=== PATIENT | male | born 1940 | race Caucasian/White ===

== ENCOUNTER → 2018-09-13 | Outpatient (CLI) | payer MEDICARE ==
[~2018-09-13] MED LIST: AMLODIPINE BESYL5 MG PO; ASPIRIN81 M1 PO; AUGMENTIN 875875 MG PO; ESCITALOPRAM OX10 MG PO; GLUCOSAMINE CH1 EAC1 PO; LISINOPRIL-HYDR1 TA1 PO; MUCINEX ER600 MG PO; POTASSIUM CHLO10 ME5 PO; PREDNISONE10 MG PO; PROPRANOLOL ER80 MG PO
[2018-09-13 09:49] LABS: BASO # 0.1 10*3/uL (0.0-0.1); BASO % 1.9 % (0.0-1.0); EOS # 0.3 10*3/uL (0.0-0.4); EOS % 5.2 % (1.0-4.0); HEMATOCRIT 42.6 % (42.0-52.0); HEMOGLOBIN 13.4 g/dl (14.0-18.0); LYMPH # 1.1 10*3/uL (1.3-4.4); LYMPH % 19.9 % (27.0-41.0); MEAN CELL VOLUME 89.5 fl (80.0-94.0); MEAN CORPUSCULAR HGB 28.2 pg (27.0-31.0); MEAN CORPUSCULAR HGB CONC 31.5 g/dl (33.0-37.0); MEAN PLATELET VOLUME 10.3 fl (9.6-12.3); MONO # 0.5 10*3/uL (0.1-1.0); MONO % 9.4 % (3.0-9.0); NEUT # 3.6 10*3/uL (2.3-7.9); NEUT % 63.3 % (47.0-73.0); PLATELET COUNT AUTOMATED 279 10*3/uL (130-400); RED BLOOD COUNT 4.76 10*6/uL (4.50-5.90); RED CELL DISTRI WIDTH 14.5 % (0-14.5); WHITE BLOOD COUNT 5.7 10*3/uL (4.8-10.8)
[2018-09-13 10:20] LABS: ALBUMIN 3.6 gm/dl (3.1-4.5); ALKALINE PHOSPHATASE 101 U/L (45-117); BUN 18 mg/dl (7-24); CHLORIDE 102 mmol/L (98-107); CHOLESTEROL 155 mg/dL (<200); CREATININE 1.02 mg/dL (0.70-1.30); HDL CHOLESTEROL 47 mg/dl (40-60); LDL CHOLESTEROL 87 mg/dL (9-159); SGOT/AST 21 IU/L (3-35); SGPT/ALT 21 U/L (12-78); SODIUM 139 mmol/L (136-145); T3 UPTAKE 33 % (31-39); THYROXINE (T4) TOTAL 7.7 ug/dl (4.5-12.1); TRIGLYCERIDES 103 mg/dl (<150); VLDL CHOLESTEROL 21 mg/dL (6-40)
== END | disposition home or self-care (01) ==
LOC: LAB 09:21
PROVIDERS: Internal Medicine
DX: Z12.5 Encounter for screening for malignant neoplasm of prostate (principal); I10 Essential (primary) hypertension; E78.2 Mixed hyperlipidemia; E03.9 Hypothyroidism, unspecified; E55.9 Vitamin D deficiency, unspecified; R53.83 Other fatigue; D51.0 Vitamin B12 deficiency anemia due to intrinsic factor deficiency

== ENCOUNTER 2018-10-21 23:03 | Inpatient (IN) | payer MEDICARE ==
[~2018-10-21] VITALS: Ht 177.8 cm; Wt 99.8 kg
--- NOTE | ~2018-10-21 | EKG ---
[place], [place] ELECTROCARDIOGRAM REPORT NAME: ANIKET LUEVANO UNIT #: [id number] ROOM: 411 DOCTOR: TRACY DRAFT REPORT BIRTHDATE: [birth year] [facility] Test Date: 2018-10-21 Test Time: 23:08:17 Pat Name: ANIKET LUEVANO Department: Room: 411 Gender: M Process Technician: : 1940 Requested By: NATALY SANZ Order Number: [id number] Reading MD: Sonja Pierre MD Measurements Intervals [place] Rate: 102 P: 53 GA: 187 QRS: 42 QRSD: 150 T: -21 QT: 372 QTc: 485 Interpretive Statements Sinus tachycardia Right bundle branch block Inferior infarct, age indeterminate Electronically Signed On 10-22-2018 7:10:49 PDT by Sonja Pierre MD CM:EKGRPT:ELECTROCARDIOGRAM REPORT [id number] NATALY NGUYEN DRAFT REPORT NATALY SANZ DO
--- NOTE | ~2018-10-21 | EKG ---
[place], [place] ELECTROCARDIOGRAM REPORT NAME: ANIKET LUEVANO UNIT #: [id number] ROOM: 411 DOCTOR: TRACY DRAFT REPORT BIRTHDATE: [birth year] [facility] Test Date: 2018-10-22 Test Time: 01:35:05 Pat Name: ANIKET LUEVANO Department: Room: 411 Gender: M Director Of Accounting: Nikki Turcios : 1940 Requested By: NATALY SANZ Order Number: [id number] Reading MD: Sonja Pierre MD Measurements Intervals [place] Rate: 83 P: 29 [place]: 204 QRS: 38 QRSD: 152 T: -15 QT: 433 QTc: 509 Interpretive Statements Sinus rhythm Right bundle branch block Inferior infarct, age indeterminate Lateral leads are also involved Baseline wander in lead(s) V1,V2,V3,V4,V5,V6 Electronically Signed On 10-22-2018 7:12:06 PDT by Sonja Pierre MD CM:EKGRPT:ELECTROCARDIOGRAM REPORT [id number] NATALY SANZ DO EPIPHCARL DRAFT REPORT NATALY SANZ DO
--- NOTE | ~2018-10-21 | CON ---
[place], [place] REPORT OF CONSULTATION NAME[id number] UNIT #: [id number] ROOM: 411 DOCTOR: WALLACE MELTON MD BIRTHDATE: [birth year] DOS: 10/22/2018 PULMONARY CONSULTATION, EVALUATION, AND MANAGEMENT HISTORY OF PRESENT ILLNESS: The patient was noted somewhat poor historian as well, presented to the hospital and admitted to the hospital this morning under the care of hospitalist services for symptoms of shortness of breath and also thought that he has a food, which has gone to the wrong pipe during last night. The patient stated he woke up, felt like choking at night, something in the throat, thought that he may have inhaled the food in his wind pipe. He came into the Emergency Room, as the patient was complaining of symptoms of increased shortness of breath with the coughing. He denies symptoms of chest pain with that. He does not have any sputum expectoration. Denies symptoms of hemoptysis. The patient has been currently admitted to the hospital for further care. This morning, the patient appeared to be comfortable using oxygen supplementation with the nasal cannula. REVIEW OF SYSTEMS: CONSTITUTIONAL: Fatigue and tiredness reported. Denies symptoms of fever or chills. EYES: Denies any burning, redness, or tenderness. EARS, NOSE, AND THROAT: Denies sore throat, hoarseness, otalgia, postnasal drainage or epistaxis. GASTROINTESTINAL: Dysphagia, nausea, vomiting, diarrhea, abdominal pain, hematemesis, melena, or hematochezia. SKIN: Denies abnormal lesions or rashes. CENTRAL NERVOUS SYSTEM: Denies dizziness, headache, diplopia, or syncopal episodes. Remaining systems were reviewed, they were noted all negative. PAST MEDICAL HISTORY: As listed are: 1. 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 The patient has unilateral breath, using noninvasive ventilator at home as per patient p.r.n. 2. Essential hypertension. 3. Moderate obesity. 4. History of essential tremors. 5. History of depression. PAST SURGICAL HISTORY: 1. Deep brain stimulator. 2. ORIF, fracture of the arm. SOCIAL HISTORY: The patient stated that he smoked cigarettes only when he was in the college for a couple of years, but not noted with chronic tobacco dependence. He is and lives at home. The patient has 3 children. Denies any history of alcohol use. FAMILY HISTORY: Unknown. [place], [place] REPORT OF CONSULTATION NAME: ANIKET LUEVANO UNIT #: [id number] ROOM: [facility] DOCTOR: SANDY ADAN MD,WALLACE BIRTHDATE: [birth year] HOME MEDICATIONS: Listed as amlodipine, aspirin, Lexapro, lisinopril, hydrochlorothiazide, potassium, chloride, and propranolol. MEDICATIONS: Current medication which has been administered on this hospitalization were Lovenox for DVT prophylaxis, Mucinex 1200 mg b.i.d., Protonix 40 mg daily, Zithromax, IV Rocephin, metronidazole, temazepam, and some other p.r.n. meds. DRUG ALLERGIES: No known drug allergies. PHYSICAL EXAMINATION: GENERAL: A 78-year-old male who has been currently noted to be awake and alert without acute distress. Height of 5 feet 10 inches, weight of 220 pounds, BMI 31.5. VITAL SIGNS: The patient's temperature 99.9 degree Fahrenheit on admission, currently afebrile, respiratory rate of 30 and currently noted 18, heart rate 107, currently 68, blood pressure 146/75 on admission, currently 100/80. Pulse oxygen saturation on room air 91% saturation, on 4 liters nasal cannula 95% saturation, previously on admission on the BiPAP used by the patient for a few hours was 94% saturation with 40% oxygen use at that time. HEENT: Examination shows head was atraumatic. Eyes nonicterus. NECK: Supple. Decreased posterior pharyngeal space, high tongue base, crowding of soft tissue structures. LUNGS: Complete absence of breath sounds noted in the right lower lung with occasional crackles. ABDOMEN: Soft, nontender. Bowel sounds present. EXTREMITIES: The patient was noted without any acute edema. Chronic obesity findings. MUSCULOSKELETAL: Without acute deformities. CENTRAL NERVOUS SYSTEM: The patient's cranial nerves 2-12 intact. LABORATORY DATA: The arterial blood gas in the Emergency Room, pH of 7.39, pCO2 of 49, pO2 of 62, rest on room air. The PT and PTT on 10/21/2018 in the Emergency Room was normal. CBC in the emergency room, WBC count 14.5, hemoglobin 13.1, platelet count was normal. The lactic acid was 1.4 this morning. CMP that was done this morning, normal BUN and creatinine. Other LFTs and electrolytes are grossly normal. Troponin 3 sets, which were completed in the last 12 hours were normal. CBC this morning, WBC count 15.7, hemoglobin 11.9, platelet count 250,000. The chest x-ray shows elevation of the right hemidiaphragm noted, possibility of small pleural fluid cannot be excluded versus pleural thickening. The CT scan of the chest that was done and reviewed, shows elevation of the hemidiaphragm with area of atelectasis of the right lower lobe partially would be considered, possibility of small pneumonia cannot be completely excluded. The right lung appeared to be clear of any large consolidation except nodular density noted in right lower lobe and incidental finding of small cyst briefly located in the right lower lobe as well. IMPRESSION: 1. The patient who has been currently admitted to the hospital developed [place], [place] REPORT OF CONSULTATION NAME: ANIKET LUEVANO UNIT #: [id number] ROOM: 411 DOCTOR: SANDY ADAN MD,[facility] BIRTHDATE: [birth year] significant respiratory distress. The patient with possibility of aspiration pneumonia. 2. 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 3. The patient without any evidence of hypercarbia, CO2 retention noted in arterial blood gases on admission. 4. The patient with nodular density of left lower lobe, to be considered infection until resolution, which is round atelectasis to nodule or infection consideration of the differential. 5. Chronic moderate obesity as well as the possibility of obstructive sleep apnea disorder. PLAN OF MANAGEMENT: The patient has been started on the antibiotic has metronidazole, Rocephin, and Zithromax that will be continued. Monitor respiratory status, progression of the illness. Usual care, other therapy, plan of management. Continue the BiPAP as tolerated to support the respiratory distress if it occurs. Otherwise, p.r.n. use. Usual care, other supportive therapy, plan of management. Additional treatment changes will be recommended for the patient based on the progression of his illness. Thank you for allowing me to participate in the care of this patient. WALLACE DELGADO MD CM:CONSTR:REPORT OF CONSULTATION 1246 10/23/18 0551 interface
--- NOTE | ~2018-10-21 | EKG ---
[place], [place] ELECTROCARDIOGRAM REPORT NAME: ANIKET LUEVANO UNIT #: [id number] ROOM: 411 DOCTOR: TRACY DRAFT REPORT BIRTHDATE: [birth year] [facility] Test Date: 2018-10-22 Test Time: 04:50:24 Pat Name: ANIKET LUEVANO Department: Room: 411 Gender: M Supervisor Delivery Department: Stephania Guevara : 1940 Requested By: NATALY SANZ Order Number: [id number] Reading MD: Sonja Pierre MD Measurements Intervals [place] Rate: 81 P: 55 [place]: 204 QRS: 39 QRSD: 155 T: -19 QT: 440 QTc: 511 Interpretive Statements Sinus rhythm Right bundle branch block Baseline wander in lead(s) V1 Electronically Signed On 10-22-2018 7:13:09 PDT by Sonja Pierre MD CM:EKGRPT:ELECTROCARDIOGRAM REPORT 0450 0713 NATALY NGUYEN DRAFT REPORT NATALY SANZ DO
--- NOTE | ~2018-10-21 | PR ---
[place], [place] PROGRESS NOTE NAME: ANIKET LUEVANO UNIT #: [id number] ROOM: 411 DOCTOR: SANDY ADAN MD,WALLACE BIRTHDATE: [birth year] DOS: 10/24/2018 SUBJECTIVE: The patient noted comfortable at this time, resting in the bed this morning of assessment. Has not been noted any symptoms of fever or chills. He does have shortness of breath and cough, which has been improving slowly and gradually. OBJECTIVE: VITAL SIGNS: For the patient which has been recorded showed normal temperature, respiratory rate 20, heart rate 91, blood pressure 142/90. Pulse oxygen saturation on 3 liters nasal cannula 98% saturation. HEENT: Head was atraumatic. Eyes nonicterus. NECK: Supple and obese. CARDIOVASCULAR: S1, S2 audible. LUNGS: Decreased breath sounds in the right lower lung. Decreased breath sounds, otherwise without any wheezing on today's exam. ABDOMEN: Soft, nontender. Bowel sounds are present. EXTREMITIES: No acute edema. IMPRESSION: 1. Acute aspiration pneumonia. 2. Acute exacerbation of chronic obstructive pulmonary disease as well. Reduction of respiratory symptom noted in the last 24 hours with current use of corticosteroids. PLAN OF MANAGEMENT: No changes from the pulmonary standpoint. Continue current therapy, plan of management. Possible discharge in the morning may be considered. WALLACE DELGADO MD CM:PNTRANS [id number] WALLACE ADAN MD 10/24/18 1710 interface
--- NOTE | ~2018-10-21 | PR ---
[place], [place] PROGRESS NOTE NAME: ANIKET LUEVANO UNIT #: [id number] ROOM: 411 DOCTOR: WALLACE MELTON MD BIRTHDATE: [birth year] DOS: 10/23/2018 PULMONARY PROGRESS NOTE SUBJECTIVE: The patient noted comfortable at this time, resting on the bed this morning. He has been noted shortness breath with minimal exertion. The patient just went from the bed to the bathroom and noted significant short of breath and also noted with audible wheezing. He denies symptoms of hemoptysis. The patient does report symptoms of nonproductive cough this morning. Denies symptoms of headache or diplopia. Denies symptoms of nausea, vomiting, diarrhea, abdominal pain, hematemesis, melena, or hematochezia. Denies any pain of the lower extremities. Remaining systems were reviewed. They were noted all negative. PHYSICAL EXAMINATION: VITAL SIGNS: For the patient this morning, normal temperature, respiratory rate 18, heart rate 90, blood pressure 142/82. Pulse oxygen saturation on 3 liters nasal cannula 95% saturation. HEENT: Moderate obesity. Head was atraumatic. Eye nonicterus. NECK: Supple. CARDIOVASCULAR: S1, S2 is audible. LUNGS: Noted with expiratory wheezing today with decreased breath sounds in the lungs, absent breath sounds previously in his right lower lung remains unchanged. ABDOMEN: Soft, nontender. Bowel sounds present. EXTREMITIES: Noted without any significant edema. MUSCULOSKELETAL: Noted without any acute deformities. SKIN: No lesions or rashes. CENTRAL NERVOUS SYSTEM: Intact. IMPRESSION: 1. Acute exacerbation of chronic obstructive pulmonary disease, possibility of acute pneumonia. 2. Pulmonary nodule was also noted as well. 3. History of chronic right diaphragmatic paralysis as well. PLAN OF THERAPY: Starting the patient on Solu-Medrol 40 mg b.i.d. dosing. Other plan of therapy will be continued as previously. Titrate oxygen supplementation, maintain pulse oxygen saturation of 92% or greater. Usual care. [place], [place] PROGRESS NOTE NAME: ANIKET LUEVANO UNIT #: [id number] ROOM: 411 DOCTOR: WALLACE MELTON MD BIRTHDATE: [birth year] WALLACE DELGADO MD CM:PNTRANS [id number] WALLACE ADAN MD 11/08/18 1045 interface
--- NOTE | ~2018-10-21 | PR ---
[place], [place] PROGRESS NOTE NAME: ANIKET LUEVANO UNIT #: [id number] ROOM: 411 DOCTOR: WALLACE MELTON MD BIRTHDATE: [birth year] DOS: 10/25/2018 SUBJECTIVE: The patient continued to do very well at this time by the respiratory management. Denies symptoms of chest pain, fever or chills. There were no symptoms of hemoptysis. Shortness of breath is improving. Coughing has been resolving, but not completely improved. OBJECTIVE: GENERAL: This morning, the patient was sitting comfortably on the bed without any acute distress. VITAL SIGNS: Normal temperature, respiratory rate 18, heart rate 78, blood pressure 146/82. Pulse oxygen saturation recorded on 3 liters is 95% saturation at that time. HEENT: Examination shows head was atraumatic. Eyes nonicterus. NECK: Supple. CARDIOVASCULAR: S1, S2 is audible. LUNGS: Absent breath sounds in right lower lung previously noted. There were no crackles present. ABDOMEN: Soft, nontender. Bowel sounds present. EXTREMITIES: Without any acute edema. LABORATORY DATA: Elevation of the hemidiaphragm noted previously chronically. Small pleural thickening and the deformity of the chest, which is chronic as well. The stimulator for the brain remains in place with a generator in the left upper chest obscuring the part of the left upper lobe. No acute infiltration at this time were noted. IMPRESSION: 1. Resolving acute suspected pneumonia. 2. Chronic right diaphragmatic paralysis as well. PLAN OF MANAGEMENT: No changes from the pulmonary standpoint. Discharge planning per primary care attending on oral antibiotics. The patient was advised to use his noninvasive ventilator at home, which has been done previously. Usual care, other supportive therapy, plan of management and care. [place], [place] PROGRESS NOTE NAME: ANIKET LUEVANO UNIT #: [id number] ROOM: 411 DOCTOR: WALLACE MELTON MD BIRTHDATE: [birth year] WALLACE DELGADO MD CM:PNTRANS [id number] WALLACE ADAN MD 10/25/181924 interface
[~2018-10-21 23:03] MED LIST changes: -AUGMENTIN 875875 MG PO; -MUCINEX ER600 MG PO; -PREDNISONE10 MG PO
[2018-10-21 23:04] VITALS: BP 146/75
[2018-10-21 23:27] LABS: BASO # 0.1 10*3/uL (0.0-0.1); BASO % 0.6 % (0.0-1.0); EOS # 0.2 10*3/uL (0.0-0.4); EOS % 1.1 % (1.0-4.0); HEMATOCRIT 41.1 % (42.0-52.0); HEMOGLOBIN 13.1 g/dl (14.0-18.0); LYMPH # 0.8 10*3/uL (1.3-4.4); LYMPH % 5.2 % (27.0-41.0); MEAN CELL VOLUME 89.7 fl (80.0-94.0); MEAN CORPUSCULAR HGB 28.6 pg (27.0-31.0); MEAN CORPUSCULAR HGB CONC 31.9 g/dl (33.0-37.0); MONO # 0.6 10*3/uL (0.1-1.0); MONO % 4.4 % (3.0-9.0); NEUT # 12.8 10*3/uL (2.3-7.9); NEUT % 88.3 % (47.0-73.0); PLATELET COUNT AUTOMATED 372 10*3/uL (130-400); RED BLOOD COUNT 4.58 10*6/uL (4.50-5.90); RED CELL DISTRI WIDTH 15.6 % (0-14.5); WHITE BLOOD COUNT 14.5 10*3/uL (4.8-10.8)
[2018-10-21 23:38] LABS: ACT PARTIAL THROMBO TIME 21.4 SECONDS (20.8-31.5)
[2018-10-21 23:57] LABS: ABG BASE EXCESS 1.7 mmol/L (-2.0-2.0); ARTERIAL BLOOD GAS PCO2 43.4 mmHg (35-45); ARTERIAL BLOOD GAS PH 7.399 (7.35-7.45); ARTERIAL BLOOD GAS PO2 62.4 mmHg (80-90)
[2018-10-22] VITALS (7 sets, daily range): BP systolic 106–153; BP diastolic 62–89
[2018-10-22 00:42] LABS: ALBUMIN 3.6 gm/dl (3.1-4.5); ALKALINE PHOSPHATASE 88 U/L (45-117); BUN 22 mg/dl (7-24); CHLORIDE 108 mmol/L (98-107); POTASSIUM 3.6 mmol/L (3.5-5.1); SGOT/AST 22 IU/L (3-35); SGPT/ALT 22 U/L (12-78); SODIUM 141 mmol/L (136-145); TOTAL PROTEIN 7.5 gm/dL (6.4-8.2)
[2018-10-22 07:09] LABS: BASO # 0.1 10*3/uL (0.0-0.1); BASO % 0.4 % (0.0-1.0); EOS % 0.1 % (1.0-4.0); HEMATOCRIT 37.9 % (42.0-52.0); HEMOGLOBIN 11.9 g/dl (14.0-18.0); LYMPH # 1.4 10*3/uL (1.3-4.4); LYMPH % 8.7 % (27.0-41.0); MEAN CELL VOLUME 89.6 fl (80.0-94.0); MEAN CORPUSCULAR HGB 28.1 pg (27.0-31.0); MEAN CORPUSCULAR HGB CONC 31.4 g/dl (33.0-37.0); MONO # 0.8 10*3/uL (0.1-1.0); MONO % 5.3 % (3.0-9.0); NEUT # 13.4 10*3/uL (2.3-7.9); NEUT % 85.1 % (47.0-73.0); RED BLOOD COUNT 4.23 10*6/uL (4.50-5.90); RED CELL DISTRI WIDTH 15.8 % (0-14.5); WHITE BLOOD COUNT 15.7 10*3/uL (4.8-10.8)
[2018-10-22 07:10] LABS: PLATELET COUNT AUTOMATED 250 10*3/uL (130-400)
[2018-10-22 07:20] LABS: BUN 22 mg/dl (7-24); CHLORIDE 108 mmol/L (98-107); CREATININE 1.07 mg/dL (0.70-1.30); POTASSIUM 3.7 mmol/L (3.5-5.1); SODIUM 143 mmol/L (136-145)
[2018-10-22 13:35] LABS: BILIRUBIN NEGATIVE (NEGATIVE); BLOOD NEGATIVE (NEGATIVE); CLARITY SL CLOUDY (CLEAR); COLOR YELLOW (YELLOW); GLUCOSE NEGATIVE (NEGATIVE); KETONE NEGATIVE (NEGATIVE); LEUKO ESTERASE NEGATIVE (NEGATIVE); NITRITE NEGATIVE (NEGATIVE); PH 5.5 (5.0-9.0); SPECIFIC GRAVITY >= 1.030 (1.005-1.030); UROBILINOGEN 0.2 E.U./dl (0.2-1.0)
[2018-10-22 13:42] LABS: BACTERIA 2+; MUCOUS 2+
[2018-10-23] VITALS: BP 125/67
[2018-10-23 06:29] LABS: BASO # 0.1 10*3/uL (0.0-0.1); BASO % 0.7 % (0.0-1.0); EOS # 0.4 10*3/uL (0.0-0.4); EOS % 4.7 % (1.0-4.0); HEMOGLOBIN 11.6 g/dl (14.0-18.0); LYMPH # 1.3 10*3/uL (1.3-4.4); LYMPH % 14.5 % (27.0-41.0); MEAN CORPUSCULAR HGB 27.5 pg (27.0-31.0); MEAN CORPUSCULAR HGB CONC 30.5 g/dl (33.0-37.0); MEAN PLATELET VOLUME 11.1 fl (9.6-12.3); MONO # 0.8 10*3/uL (0.1-1.0); MONO % 8.8 % (3.0-9.0); NEUT # 6.6 10*3/uL (2.3-7.9); NEUT % 71.1 % (47.0-73.0); PLATELET COUNT AUTOMATED 222 10*3/uL (130-400); RED BLOOD COUNT 4.22 10*6/uL (4.50-5.90); RED CELL DISTRI WIDTH 15.7 % (0-14.5); WHITE BLOOD COUNT 9.2 10*3/uL (4.8-10.8)
[2018-10-23 07:00] LABS: BUN 20 mg/dl (7-24); CHLORIDE 104 mmol/L (98-107); CREATININE 0.91 mg/dL (0.70-1.30); POTASSIUM 3.7 mmol/L (3.5-5.1); SODIUM 139 mmol/L (136-145)
[2018-10-23 08:00] VITALS: BP 130/80; BP 142/82
[2018-10-23 12:00] VITALS: BP 150/80; BP 169/97
[2018-10-23 16:00] VITALS: BP 160/73
[2018-10-23 17:50] VITALS: BP 160/88
[2018-10-23 20:00] VITALS: BP 158/78; BP 173/98
[2018-10-24] VITALS: BP 153/99
[2018-10-24 06:09] LABS: BASO % 0.2 % (0.0-1.0); HEMATOCRIT 38.6 % (42.0-52.0); LYMPH # 0.6 10*3/uL (1.3-4.4); LYMPH % 6.7 % (27.0-41.0); MEAN CELL VOLUME 88.5 fl (80.0-94.0); MEAN CORPUSCULAR HGB 27.5 pg (27.0-31.0); MEAN CORPUSCULAR HGB CONC 31.1 g/dl (33.0-37.0); MEAN PLATELET VOLUME 10.9 fl (9.6-12.3); MONO # 0.3 10*3/uL (0.1-1.0); MONO % 3.1 % (3.0-9.0); NEUT # 7.7 10*3/uL (2.3-7.9); NEUT % 89.7 % (47.0-73.0); PLATELET COUNT AUTOMATED 234 10*3/uL (130-400); RED BLOOD COUNT 4.36 10*6/uL (4.50-5.90); RED CELL DISTRI WIDTH 15.5 % (0-14.5); WHITE BLOOD COUNT 8.6 10*3/uL (4.8-10.8)
[2018-10-24 06:31] LABS: BUN 19 mg/dl (7-24); CHLORIDE 104 mmol/L (98-107); CREATININE 0.77 mg/dL (0.70-1.30); POTASSIUM 3.9 mmol/L (3.5-5.1); SODIUM 141 mmol/L (136-145)
[2018-10-24 08:00] VITALS: BP 142/88
[2018-10-24 12:00] VITALS: BP 142/90
[2018-10-24 16:00] VITALS: BP 141/85
[2018-10-24 20:00] VITALS: BP 145/92
[2018-10-25] VITALS: BP 149/83
[2018-10-25 05:53] LABS: BASO % 0.1 % (0.0-1.0); LYMPH # 0.8 10*3/uL (1.3-4.4); LYMPH % 6.8 % (27.0-41.0); MEAN CELL VOLUME 88.8 fl (80.0-94.0); MEAN CORPUSCULAR HGB CONC 31.6 g/dl (33.0-37.0); MEAN PLATELET VOLUME 11.1 fl (9.6-12.3); MONO # 0.8 10*3/uL (0.1-1.0); NEUT % 85.6 % (47.0-73.0); PLATELET COUNT AUTOMATED 247 10*3/uL (130-400); RED BLOOD COUNT 4.28 10*6/uL (4.50-5.90); RED CELL DISTRI WIDTH 15.6 % (0-14.5); WHITE BLOOD COUNT 11.7 10*3/uL (4.8-10.8)
[2018-10-25 05:59] LABS: BUN 27 mg/dl (7-24); CHLORIDE 105 mmol/L (98-107); CREATININE 0.89 mg/dL (0.70-1.30); POTASSIUM 3.8 mmol/L (3.5-5.1); SODIUM 141 mmol/L (136-145)
[2018-10-25 08:00] VITALS: BP 146/82
[2018-10-25 12:00] VITALS: BP 137/86
[2018-10-25] MEDS ORDERED: PREDNISONE10 MG PO (13:03)
[2018-10-25] MEDS ORDERED: MUCINEX ER600 MG PO (13:03)
[2018-10-25] MEDS ORDERED: AUGMENTIN 875875 MG PO (13:03)
== END 2018-10-25 14:45 | disposition home or self-care (01) | DRG 871 ==
LOC: ED 23:03 → EDHOLD 10-22 01:45 → 4E 10-22 01:45
PROVIDERS: Emergency Medicine; Family Medicine; Internal Medicine; Student in an Organized Health Care Education/Training Program; ADMIT Internal Medicine
PROC: 5A09357 Assistance with Respiratory Ventilation, Less than 24 Consecutive Hours, Continuous Positive Airway Pressure (ICD-10-PCS; principal; 2018-10-22)
PROC: 5A09357 Assistance with Respiratory Ventilation, Less than 24 Consecutive Hours, Continuous Positive Airway Pressure (ICD-10-PCS; 2018-10-25)
DX: A41.9 Sepsis, unspecified organism (principal); J96.01 Acute respiratory failure with hypoxia; J69.0 Pneumonitis due to inhalation of food and vomit; J44.1 Chronic obstructive pulmonary disease with (acute) exacerbation; I10 Essential (primary) hypertension; F32.9 Major depressive disorder, single episode, unspecified; F17.210 Nicotine dependence, cigarettes, uncomplicated; J98.6 Disorders of diaphragm; R91.1 Solitary pulmonary nodule; D64.9 Anemia, unspecified; G58.8 Other specified mononeuropathies; E66.09 Other obesity due to excess calories; Z68.31 Body mass index [BMI] 31.0-31.9, adult; Z79.82 Long term (current) use of aspirin; Z79.899 Other long term (current) drug therapy

== ENCOUNTER 2021-06-17 22:34 | Observation (INO) | payer MEDICARE ==
[~2021-06-17] VITALS: Ht 180 cm; Wt 98.4 kg
[~2021-06-17 22:34] MED LIST changes: -DECADRON6 M1 PO; -ELIQUIS5 M1 PO; -MUCUS RELIEF600 MG PO; -PRIMIDONE250 MG PO; -VITAMIN D3125 MCG PO; -ZITHROMAX250 MG PO
[2021-06-17 22:44] VITALS: BP 127/68
[2021-06-17 23:11] LABS: BASO # 0.1 10*3/uL (0.0-0.1); BASO % 0.4 % (0.0-1.0); EOS # 0.1 10*3/uL (0.0-0.4); EOS % 0.7 % (1.0-4.0); HEMATOCRIT 40.1 % (42.0-52.0); LYMPH # 1.6 10*3/uL (1.3-4.4); LYMPH % 10.1 % (27.0-41.0); MEAN CELL VOLUME 89.7 fl (80.0-94.0); MEAN CORPUSCULAR HGB 28.6 pg (27.0-31.0); MEAN CORPUSCULAR HGB CONC 31.9 g/dl (33.0-37.0); MEAN PLATELET VOLUME 10.6 fl (9.6-12.3); MONO # 1.2 10*3/uL (0.1-1.0); MONO % 7.5 % (3.0-9.0); NEUT % 80.9 % (47.0-73.0); PLATELET COUNT AUTOMATED 231 10*3/uL (130-400); RED BLOOD COUNT 4.47 10*6/uL (4.50-5.90); RED CELL DISTRI WIDTH 15.1 % (0-14.5); WHITE BLOOD COUNT 16.1 10*3/uL (4.8-10.8)
[2021-06-17 23:34] LABS: ALBUMIN 3.4 gm/dl (3.1-4.5); CREATININE 2.03 mg/dL (0.70-1.30); POTASSIUM 3.7 mmol/L (3.5-5.1); TOTAL PROTEIN 7.8 gm/dL (6.4-8.2)
[2021-06-18] VITALS (8 sets, daily range): BP systolic 123–153; BP diastolic 62–851
[2021-06-18 05:07] LABS: ALBUMIN 3.1 gm/dl (3.1-4.5); CREATININE 1.76 mg/dL (0.70-1.30); POTASSIUM 3.3 mmol/L (3.5-5.1); TOTAL PROTEIN 7.4 gm/dL (6.4-8.2)
[2021-06-18 05:12] LABS: FREE T4 1.15 ng/dl (0.76-1.46); THYROID STIM HORMONE (HS) 1.36 uIU/ml (0.358-4.75)
[2021-06-18 06:08] LABS: BASO # 0.1 10*3/uL (0.0-0.1); BASO % 0.5 % (0.0-1.0); EOS # 0.2 10*3/uL (0.0-0.4); EOS % 1.6 % (1.0-4.0); HEMATOCRIT 39.1 % (42.0-52.0); LYMPH # 1.4 10*3/uL (1.3-4.4); LYMPH % 9.9 % (27.0-41.0); MEAN CELL VOLUME 89.9 fl (80.0-94.0); MEAN CORPUSCULAR HGB 28.7 pg (27.0-31.0); MEAN PLATELET VOLUME 11.6 fl (9.6-12.3); MONO # 1.2 10*3/uL (0.1-1.0); MONO % 8.6 % (3.0-9.0); NEUT # 11.2 10*3/uL (2.3-7.9); PLATELET COUNT AUTOMATED 215 10*3/uL (130-400); RED BLOOD COUNT 4.35 10*6/uL (4.50-5.90); RED CELL DISTRI WIDTH 15.1 % (0-14.5); WHITE BLOOD COUNT 14.1 10*3/uL (4.8-10.8)
[2021-06-18 08:10] LABS: FERRITIN 64.7 ng/mL (22.0-322.0)
[2021-06-18] MEDS ORDERED: PRIMIDONE250 MG PO (09:50)
[2021-06-18] MEDS ORDERED: ELIQUIS5 M1 PO (09:52)
[2021-06-18 11:25] LABS: BILIRUBIN Negative (Negative); BLOOD Negative (Negative); CLARITY Clear (Clear); COLOR Yellow (Yellow); GLUCOSE Negative (Negative); KETONE Negative (Negative); LEUKO ESTERASE Trace (Negative); NITRITE Negative (Negative); SPECIFIC GRAVITY <= 1.005 (1.001-1.030); UROBILINOGEN 0.2 E.U./dl (0.0-1.0)
[2021-06-18 11:41] LABS: BACTERIA TRACE
[2021-06-18 11:42] LABS: HYALINE CAST 0-2
[2021-06-19] VITALS: BP 143/90
[2021-06-19 06:22] LABS: BUN 34 mg/dl (7-24); CHLORIDE 102 mmol/L (98-107); CREATININE 1.17 mg/dL (0.70-1.30); LDH 173 U/L (87-241); POTASSIUM 3.6 mmol/L (3.5-5.1); SODIUM 139 mmol/L (136-145)
[2021-06-19 06:27] LABS: BASO % 0.3 % (0.0-1.0); EOS # 0.3 10*3/uL (0.0-0.4); EOS % 2.1 % (1.0-4.0); HEMATOCRIT 38.2 % (42.0-52.0); LYMPH # 1.2 10*3/uL (1.3-4.4); LYMPH % 10.5 % (27.0-41.0); MEAN CELL VOLUME 89.7 fl (80.0-94.0); MEAN CORPUSCULAR HGB 28.9 pg (27.0-31.0); MEAN CORPUSCULAR HGB CONC 32.2 g/dl (33.0-37.0); MEAN PLATELET VOLUME 10.9 fl (9.6-12.3); MONO # 1.2 10*3/uL (0.1-1.0); MONO % 9.9 % (3.0-9.0); NEUT % 76.8 % (47.0-73.0); PLATELET COUNT AUTOMATED 212 10*3/uL (130-400); RED BLOOD COUNT 4.26 10*6/uL (4.50-5.90); WHITE BLOOD COUNT 11.7 10*3/uL (4.8-10.8)
[2021-06-19 08:00] VITALS: BP 160/92
[2021-06-19 12:00] VITALS: BP 132/80
[2021-06-19] MEDS ORDERED: DECADRON6 M1 PO (13:37)
[2021-06-19] MEDS ORDERED: VITAMIN D3125 MCG PO (13:37)
[2021-06-19] MEDS ORDERED: MUCUS RELIEF600 MG PO (13:37)
[2021-06-19] MEDS ORDERED: ZITHROMAX250 MG PO (13:37)
[2021-06-19 15:57] VITALS: BP 153/95
== END 2021-06-19 16:37 | disposition home health service (06) ==
LOC: ED 22:34 → EDHOLD 06-18 00:56 → 4E 06-18 00:56
PROVIDERS: Internal Medicine; ADMIT Internal Medicine; ATTEND Internal Medicine
DX: A41.9 Sepsis, unspecified organism (principal); J96.01 Acute respiratory failure with hypoxia; I11.0 Hypertensive heart disease with heart failure; I50.33 Acute on chronic diastolic (congestive) heart failure; N17.9 Acute kidney failure, unspecified; N17.0 Acute kidney failure with tubular necrosis; G58.8 Other specified mononeuropathies; J96.00 Acute respiratory failure, unspecified whether with hypoxia or hypercapnia; J90 Pleural effusion, not elsewhere classified; R79.82 Elevated C-reactive protein (CRP); Z20.822 Contact with and (suspected) exposure to COVID-19; D64.9 Anemia, unspecified; D72.829 Elevated white blood cell count, unspecified; G25.0 Essential tremor; E66.01 Morbid (severe) obesity due to excess calories; J18.9 Pneumonia, unspecified organism; E55.9 Vitamin D deficiency, unspecified; Z79.899 Other long term (current) drug therapy; Z79.01 Long term (current) use of anticoagulants

== ENCOUNTER → 2021-06-17 | Outpatient (CLI) | payer MEDICARE ==
[~2021-06-17] MED LIST changes: +AUGMENTIN 875875 MG PO; +DECADRON6 M1 PO; +ELIQUIS5 M1 PO; +MUCINEX ER600 MG PO; +MUCUS RELIEF600 MG PO; +PREDNISONE10 MG PO; +PRIMIDONE250 MG PO; +VITAMIN D3125 MCG PO; +ZITHROMAX250 MG PO
== END | disposition home or self-care (01) ==
LOC: COVID19 16:40
PROVIDERS: ATTEND Internal Medicine
DX: Z20.822 Contact with and (suspected) exposure to COVID-19 (principal)

== ENCOUNTER 2022-02-21 12:58 | Emergency (ER) | payer MEDICARE ==
[~2022-02-21] VITALS: Ht 180.3 cm; Wt 102.5 kg
[~2022-02-21 12:58] MED LIST changes: +DECADRON6 M1 PO; +ELIQUIS5 M1 PO; +MUCUS RELIEF600 MG PO; +PRIMIDONE250 MG PO; +VITAMIN D3125 MCG PO; +ZITHROMAX250 MG PO
[2022-02-21 15:20] LABS: BASO # 0.1 10*3/uL (0.0-0.1); BASO % 1.7 % (0.0-1.0); EOS # 0.6 10*3/uL (0.0-0.4); EOS % 9.5 % (1.0-4.0); HEMATOCRIT 44.3 % (42.0-52.0); LYMPH # 1.3 10*3/uL (1.3-4.4); LYMPH % 19.2 % (27.0-41.0); MEAN CORPUSCULAR HGB 28.9 pg (27.0-31.0); MEAN CORPUSCULAR HGB CONC 32.1 g/dl (33.0-37.0); MEAN PLATELET VOLUME 10.2 fl (9.6-12.3); MONO # 0.6 10*3/uL (0.1-1.0); MONO % 9.7 % (3.0-9.0); NEUT # 3.9 10*3/uL (2.3-7.9); NEUT % 59.7 % (47.0-73.0); PLATELET COUNT AUTOMATED 241 10*3/uL (130-400); RED BLOOD COUNT 4.92 10*6/uL (4.50-5.90); RED CELL DISTRI WIDTH 15.9 % (0-14.5); WHITE BLOOD COUNT 6.6 10*3/uL (4.8-10.8)
[2022-02-21 15:47] LABS: ALKALINE PHOSPHATASE 80 U/L (45-117); BUN 23 mg/dl (7-24); CHLORIDE 104 mmol/L (98-107); CREATININE 1.03 mg/dL (0.70-1.30); LIPASE 185 U/L (73-393); POTASSIUM 3.9 mmol/L (3.5-5.1); SGOT/AST 22 IU/L (3-35); SGPT/ALT 22 U/L (12-78); SODIUM 138 mmol/L (136-145); TOTAL PROTEIN 7.7 gm/dL (6.4-8.2)
== END 2022-02-21 17:31 | disposition home or self-care (01) ==
LOC: ED 12:58
PROVIDERS: Emergency Medicine
DX: M71.38 Other bursal cyst, other site (principal); Z79.899 Other long term (current) drug therapy; Z79.82 Long term (current) use of aspirin; Z98.890 Other specified postprocedural states

== ENCOUNTER 2023-06-19 13:16 | Emergency (ER) | payer MEDICARE ==
[~2023-06-19] VITALS: Ht 180.3 cm; Wt 102.5 kg
[~2023-06-19 13:16] MED LIST changes: +AZITHROMYCIN500 M2 PO; +LASIX40 MG PO
[2023-06-19 14:10] LABS: BASO % 0.3 % (0.0-1.0); EOS % 0.1 % (1.0-4.0); LYMPH # 0.9 10*3/uL (1.3-4.4); LYMPH % 7.3 % (27.0-41.0); MEAN CELL VOLUME 93.9 fl (80.0-94.0); MEAN CORPUSCULAR HGB 28.4 pg (27.0-31.0); MEAN CORPUSCULAR HGB CONC 30.2 g/dl (33.0-37.0); MEAN PLATELET VOLUME 10.6 fl (9.6-12.3); MONO # 0.4 10*3/uL (0.1-1.0); NEUT # 10.4 10*3/uL (2.3-7.9); NEUT % 88.9 % (47.0-73.0); PLATELET COUNT AUTOMATED 245 10*3/uL (130-400); RED BLOOD COUNT 5.11 10*6/uL (4.50-5.90); WHITE BLOOD COUNT 11.7 10*3/uL (4.8-10.8)
[2023-06-19 14:21] LABS: ACT PARTIAL THROMBO TIME 21.7 SECONDS (20.0-32.1)
[2023-06-19 14:21] LABS: BILIRUBIN Negative (Negative); BLOOD Negative (Negative); CLARITY Clear (Clear); COLOR Yellow (Yellow); GLUCOSE Negative (Negative); KETONE Negative (Negative); LEUKO ESTERASE Negative (Negative); NITRITE Negative (Negative); PH 5.5 (4.5-8.0); SPECIFIC GRAVITY 1.015 (1.001-1.030); UROBILINOGEN 0.2 E.U./dl (0.0-1.0)
[2023-06-19 14:40] LABS: BACTERIA 2+; HYALINE CAST 0-2; MUCOUS TRACE
[2023-06-19 14:43] LABS: ALKALINE PHOSPHATASE 63 U/L (46-116); BUN 36 mg/dl (9-23); CHLORIDE 100 mmol/L (98-107); LIPASE 53 U/L (12-53); POTASSIUM 3.7 mmol/L (3.4-5.1); SGPT/ALT 45 U/L (5-49); TOTAL PROTEIN 7.5 gm/dL (6.0-8.0)
[2023-06-19 14:53] LABS: ETHYL ALCOHOL < 3.0 mg/dl (<3)
[2023-06-19] MEDS ORDERED: OMNICEF300 MG PO (16:53)
== END 2023-06-19 17:10 | disposition home or self-care (01) ==
LOC: ED 13:16
PROVIDERS: Family Medicine
DX: N39.0 Urinary tract infection, site not specified (principal); R10.2 Pelvic and perineal pain; I10 Essential (primary) hypertension; J44.9 Chronic obstructive pulmonary disease, unspecified; Z86.718 Personal history of other venous thrombosis and embolism; Z79.899 Other long term (current) drug therapy